=== PATIENT | female | born 1995 | race Two or more races ===

== ENCOUNTER 2017-05-01 08:43 | Emergency (ER) | payer OTHER ==
[2017-05-01 08:54] VITALS: BP 117/82; PULSE 84; TEMP 98.6; BMI 24.3
--- NOTE | 2017-05-01 10:27 | PDOC ---
History of Present Illness - General Stated Complaint: FEVER, NAUSEA Time Seen by Provider: 05/01/17 09:32 History Source: Patient Exam Limitations: No Limitations - History of Present Illness Initial Comments: 05/01/17 10:20 Patient is a 21-year-old female, no significant medical history currently on no medication presents with sore throat, tactile fever, generalized aches since yesterday. Did not take any medication today, is ambulatory, afebrile. Past Medical History: [Denies]. Allergies: No known allergies Medications: None[] Family History: Non-contributory Social History: Denies smoking, alcohol use, or IVDU Review of Systems GENERAL/CONSTITUTIONAL: [Tactile fever No weakness. No weight change.] HEAD, EYES, EARS, NOSE AND THROAT: [No change in vision. No ear pain or discharge. Sore throat. ] CARDIOVASCULAR: [No chest pain or shortness of breath.] RESPIRATORY: [No cough, wheezing, or hemoptysis.] GASTROINTESTINAL: [No nausea, vomiting, diarrhea or constipation. No rectal bleeding.] GENITOURINARY: [No dysuria, frequency, or change in urination.] MUSCULOSKELETAL: [No joint or muscle swelling or pain. No neck or back pain.] SKIN AND BREASTS: [No rash or easy bruising.] NEUROLOGIC: [No headache, vertigo, loss of consciousness, or loss of sensation.] PSYCHIATRIC: [No depression or anxiety.] ENDOCRINE: [No increased thirst. No abnormal weight change.] HEMATOLOGIC/LYMPHATIC: [No anemia, easy bleeding, or history of blood clots.] ALLERGIC/IMMUNOLOGIC: [No hives or skin allergy. No latex allergy.] Physical Exam: GENERAL: [The patient is awake, alert, and fully oriented, in no acute distress. ] HEAD: [Normal with no signs of trauma.] EYES: [Pupils equal, round and reactive to light, extraocular movements intact, sclera anicteric, conjunctiva clear.] ENT: [Ears normal, nares patent, oropharynx clear without exudates. Moist mucous membranes. No uvula deviation] NECK: [Normal range of motion, supple without lymphadenopathy, JVD, or masses.] LUNGS: [Breath sounds equal, clear to auscultation bilaterally. No wheezes, and no crackles.] HEART: [Regular rate and rhythm, normal S1 and S2 without murmur, rub or gallop. ] ABDOMEN: [Soft, nontender, normoactive bowel sounds. No guarding, no rebound. No masses. No bruising or abrasions] RECTAL : [Guaiac negative, normal rectal tone.] MUSCULOSKELETAL: [Normal range of motion, no edema. No clubbing or cyanosis. No cords, erythema, or tenderness. No CVA Tenderness with fist.] NEUROLOGICAL: [Cranial nerves II through XII grossly intact. Normal speech, normal gait.] PSYCH: [Normal mood, normal affect.] SKIN: [Warm, Dry, normal turgor, no rashes or lesions noted.] 05/01/17 10:26 Past History - Past Medical History Allergies/Adverse Reactions: Allergies Allergy/AdvReac Type Severity Reaction Status Date / Time No Known Allergies Allergy Verified 05/01/17 08:54 Home Medications: Ambulatory Orders Ibuprofen [Motrin -] 600 mg PO QID #20 tablet 05/01/17 CVA: No COPD: No - Immunization History TDAP Vaccination: Yes Immunization Up to Date: Yes - Suicide/Smoking/Psychosocial Hx Smoking Status: No Smoking History: Never smoked Have you smoked in the past 12 months: No Number of Cigarettes Smoked Daily: 0 Information on smoking cessation initiated: No Hx Alcohol Use: No Drug/Substance Use Hx: No Substance Use Type: None *Physical Exam - Vital Signs Last Vital Signs Temp Pulse Resp BP Pulse Ox 98.6 F 84 15 117/82 100 05/01/17 08:51 05/01/17 08:51 05/01/17 08:51 05/01/17 08:51 05/01/17 08:51 ED Treatment Course - ADDITIONAL ORDERS Additional order review: 05/01/17 09:52 Group A Strep Rapid Antigen - Preliminary Throat Medical Decision Making - Medical Decision Making 05/01/17 10:27 A/P: Patient here complaining of tactile fever, afebrile upon arrival, sore throat, physical examination is benign rapid strep is negative we'll DC patient home with, cold-like symptoms to follow-up with primary care in 3 days if symptoms persist I discussed the physical exam findings, ancillary test results and final diagnoses with the patient. I answered all of the patient's questions. The patient was satisfied with the care received and felt comfortable with the discharge plan and treatment plan. The patient will call to arrange follow-up and will return to the Emergency Department with any new, persistent or worsening symptoms. *DC/Admit/Observation/Transfer Diagnosis at time of Disposition: Common cold virus - Discharge Dispostion Disposition: HOME Condition at time of disposition: Stable Admit: No - Prescriptions Prescriptions: Ibuprofen [Motrin -] 600 mg PO QID #20 tablet - Referrals Referrals: Simone Meneses MD [Staff Physician] - - Patient Instructions Additional Instructions: Increase fluids to prevent dehydration Motrin for fever greater than 101.0 Please followup with primary care DrLuis Eduardo in 3 days if symptoms persist Return to emergency department any increased cough, fever, inability to drink or other concerns - Post Discharge Activity Forms/Work/School Notes: Back to Work
== END 2017-05-01 10:43 | disposition home or self-care (01) ==
LOC: JERFT 08:43
DX: J00 Acute nasopharyngitis [common cold] (principal)
CPT/HCPCS: 87070; 87430; 99281-25

== ENCOUNTER 2018-04-08 14:27 | Emergency (ER) | payer OTHER ==
[2018-04-08 14:35] VITALS: BP 124/71; PULSE 89; TEMP 98.9; BMI 25.7
--- NOTE | 2018-04-08 15:38 | PDOC ---
History of Present Illness - General Chief Complaint: Headache Stated Complaint: HEADACHE Time Seen by Provider: 04/08/18 15:31 History Source: Patient Exam Limitations: No Limitations - History of Present Illness Initial Comments: 04/08/18 15:50 CHIEF COMPLAINT: Headache HISTORY OF PRESENT ILLNESS: This is an otherwise healthy 22-year-old female presents for evaluation of 2 days of headache. She does not recall exactly when the headache started or what she was doing. She describes the pain as dull and constant. She indicates the left parietal area. She denies any associated blurred vision, changes in speech, focal weakness or numbness, or any other symptoms. She does have some phonophobia, but no photophobia. She reports that she has had similar headaches in the past. Pain has been unrelieved by Motrin or Tylenol. REVIEW OF SYSTEMS: GENERAL/CONSTITUTIONAL: No fever or chills. No weakness. No weight change. HEAD, EYES, EARS, NOSE AND THROAT: No change in vision. No ear pain or discharge. No sore throat. CARDIOVASCULAR: No chest pain or palpitations. RESPIRATORY: No cough, wheezing, or shortness of breath. GASTROINTESTINAL: No nausea, vomiting, diarrhea or constipation. GENITOURINARY: No dysuria, frequency, or change in urination. MUSCULOSKELETAL: No joint or muscle swelling or pain. No neck or back pain. SKIN: No rash or easy bruising. NEUROLOGIC: See HPI. PSYCHIATRIC: No depression or anxiety. ENDOCRINE: No increased thirst. No abnormal weight change. HEMATOLOGIC/LYMPHATIC: No anemia, easy bleeding, or history of blood clots. ALLERGIC/IMMUNOLOGIC: No hives or skin allergy. No latex allergy. PHYSICAL EXAM: GENERAL: The patient is awake, alert, and fully oriented, in no acute distress. HEAD: Normal with no signs of trauma. ENT: Pupils equal, round and reactive to light, extraocular movements intact, sclera anicteric, conjunctiva clear. Neck supple. LUNGS: Clear to auscultation bilaterally. Normal excursion. No respiratory distress or use of accessory muscles. CV: RRR, S1/S2, no MRG. Cap refill < 2 sec. ABDOMEN: Soft, non-distended, non-tender. EXTREMITIES: Normal range of motion, no edema. NEUROLOGICAL: Normal speech, normal gait. CN II-XII grossly intact. PSYCH: Normal mood, normal affect. SKIN: Warm, dry, normal turgor, no rashes or lesions noted. Past History - Past Medical History Allergies/Adverse Reactions: Allergies Allergy/AdvReac Type Severity Reaction Status Date / Time No Known Allergies Allergy Verified 05/01/17 08:54 Home Medications: Ambulatory Orders NK [No Known Home Medication] 04/08/18 CVA: No COPD: No - Immunization History TDAP Vaccination: Yes Immunization Up to Date: Yes - Suicide/Smoking/Psychosocial Hx Smoking Status: No Smoking History: Never smoked Have you smoked in the past 12 months: No Number of Cigarettes Smoked Daily: 0 Information on smoking cessation initiated: No Hx Alcohol Use: No Drug/Substance Use Hx: No Substance Use Type: None *Physical Exam - Vital Signs Last Vital Signs Temp Pulse Resp BP Pulse Ox 98.9 F 89 20 124/71 99 04/08/18 14:32 04/08/18 14:32 04/08/18 14:32 04/08/18 14:32 04/08/18 14:32 Moderate Sedation - Procedure Monitoring Vital Signs: Procedure Monitoring Vital Signs Temperature 98.9 F 04/08/18 14:32 Pulse Rate 89 04/08/18 14:32 Respiratory Rate 20 04/08/18 14:32 Blood Pressure 124/71 04/08/18 14:32 O2 Sat by Pulse Oximetry (%) 99 04/08/18 14:32 Medical Decision Making - Medical Decision Making 04/08/18 15:51 A/P: 22-year-old female with headache. Normal neurologic exam. -Urine -Trial of Toradol 30 mg IM and Reglan 10 mg PO -Reassess 04/08/18 17:11 Patient reevaluated and reports headache resolved. Will discharge with ibuprofen. Follow-up instructions and return precautions reviewed. *DC/Admit/Observation/Transfer Diagnosis at time of Disposition: Headache Qualifiers: Headache type: unspecified Headache chronicity pattern: acute headache Intractability: not intractable Qualified Code(s): R51 - Headache - Discharge Dispostion Disposition: HOME Condition at time of disposition: Improved Decision to Admit order: No - Referrals Referrals: Denny Louis MD [Staff Physician] - 1 week (Neurology - if symptoms continue ) - Patient Instructions Printed Discharge Instructions: DI for Headache Additional Instructions: Take ibuprofen as prescribed for pain. Rest and stay well hydrated. Follow up with neurology (referral and close) if symptoms continue. Return for worsening headache, change in vision, speech, or strength in the arms and legs, or for any other concerning symptoms. - Post Discharge Activity Forms/Work/School Notes: Back to School
[2018-04-08] MEDS ORDERED: KETOROLAC TROMETHAMINE 30 MG/1 ML VIAL IM ONE (15:48)
[2018-04-08] MEDS ORDERED: METOCLOPRAMIDE HCL 10 MG TABLET (FP) PO ONE ×2 (15:48→16:00)
[2018-04-08] MEDS ORDERED: KETOROLAC TROMETHAMINE 30 MG/1 ML VIAL ONE (16:00)
== END 2018-04-08 17:15 | disposition home or self-care (01) ==
LOC: JERFT 14:27
PROC: 3E0233Z Introduction of Anti-inflammatory into Muscle, Percutaneous Approach (ICD-10-PCS; principal; 2018-04-08)
DX: R51 Headache (principal)
CPT/HCPCS: 84703; 99281-25

== ENCOUNTER 2019-01-26 09:14 | Emergency (ER) | payer OTHER ==
[2019-01-26 09:25] VITALS: BP 118/72; PULSE 79; TEMP 97.9; BMI 25.7
--- NOTE | 2019-01-26 09:51 | PDOC ---
History of Present Illness - General Chief Complaint: Injury Stated Complaint: FALL Time Seen by Provider: 01/26/19 09:23 History Source: Patient - History of Present Illness Occurred: reports: this morning Severity: Yes: mild Lower Extremity Pain Location: right: ankle Method of Injury: Yes: twisted Past History - Past Medical History Allergies/Adverse Reactions: Allergies Allergy/AdvReac Type Severity Reaction Status Date / Time No Known Allergies Allergy Verified 01/26/19 09:23 Home Medications: Ambulatory Orders Ibuprofen [Motrin -] 600 mg PO QID PRN #20 tablet 04/08/18 CVA: No COPD: No - Immunization History TDAP Vaccination: Yes Immunization Up to Date: Yes - Psycho Social/Smoking Cessation Hx Smoking Status: No Smoking History: Never smoked Have you smoked in the past 12 months: No Number of Cigarettes Smoked Daily: 0 Information on smoking cessation initiated: No Hx Alcohol Use: No Drug/Substance Use Hx: No Substance Use Type: None Review of Systems - Review of Systems Musculoskeletal: Yes: Joint Pain. No: Joint Swelling *Physical Exam - Vital Signs Last Vital Signs Temp Pulse Resp BP Pulse Ox 97.9 F 79 17 118/72 100 01/26/19 09:20 01/26/19 09:20 01/26/19 09:20 01/26/19 09:20 01/26/19 09:20 - Physical Exam General Appearance: Yes: Appropriately Dressed Extremity: positive: Normal Inspection. negative: Tender, Swelling Integumentary: positive: Dry, Warm Neurologic: positive: Fully Oriented, Alert, Normal Mood/Affect ED Treatment Course - RADIOLOGY Radiology Studies Ordered: Category Date Time Status ANKLE & FOOT-RIGHT* [RAD] Stat Radiology 01/26/19 09:35 Ordered Medical Decision Making - Medical Decision Making 01/26/19 09:55 23-year-old female no significant history here with right ankle pain after twisting it this morning. Able to bear weight see exam Ankle sprain Exam unremarkable XR neg -Dc w/ OTC med prn pain -Ortho f/u as needed Discharge - Discharge Information Problems reviewed: Yes Clinical Impression/Diagnosis: Ankle sprain Qualifiers: Encounter type: initial encounter Involved ligament of ankle: unspecified ligament Laterality: right Qualified Code(s): S93.401A - Sprain of unspecified ligament of right ankle, initial encounter Condition: Good Disposition: HOME - Follow up/Referral Referrals: Severino Jason MD [Staff Physician] - - Patient Discharge Instructions Patient Printed Discharge Instructions: DI for Ankle Sprain Additional Instructions: X-ray did not show any break or fracture. You most likely sustained a mild sprain which can take several days to a week or so to fully heal. Take Motrin or Tylenol for pain as needed If pain persist after 2 weeks, please follow-up with Dr. Jason of orthopedics - Post Discharge Activity Work/Back to School Note: Back to School
== END 2019-01-26 09:50 | disposition home or self-care (01) ==
LOC: JERFT 09:14
DX: S93.401A Sprain of unspecified ligament of right ankle, initial encounter (principal); X58.XXXA Exposure to other specified factors, initial encounter; Y93.89 Activity, other specified; Y92.89 Other specified places as the place of occurrence of the external cause
CPT/HCPCS: 73610-TC-RT-FY; 73630-TC-RT-FY; 99281-25

== ENCOUNTER 2020-12-15 09:11 | Emergency (ER) | payer OTHER ==
[2020-12-15 09:49] VITALS: BP 126/80; PULSE 86; TEMP 97.9; BMI 26.5
[2020-12-15] MEDS ORDERED: IBUPROFEN 600 MG TABLET (FP) PO ONE ×2 (10:01→10:10)
== END 2020-12-15 10:10 | disposition home or self-care (01) ==
LOC: JER 09:11
DX: J02.9 Acute pharyngitis, unspecified (principal)
CPT/HCPCS: 87880; 99283-25; C9803; U0003; U0005

== ENCOUNTER 2022-11-06 15:20 | Emergency (ER) | payer OTHER ==
[2022-11-06 15:48] VITALS: RESP 18; BMI 27.4
[2022-11-06 17:14] LABS: HCG,QUALITATIVE URINE Negative
[2022-11-06 17:22] LABS: EPI CELLS 35 /uL (0-25.1); HYALINE CASTS 0 /uL (0-3.1); URINE APPEARANCE CLEAR; URINE BACTERIA 181 /uL (0-1359); URINE BILIRUBIN NEGATIVE (NEGATIVE); URINE COLOR YELLOW; URINE GLUCOSE (UA) NEGATIVE (NEGATIVE); URINE KETONE TRACE (NEGATIVE); URINE LEUK ESTERASE NEGATIVE (NEGATIVE); URINE NITRITE NEGATIVE (NEGATIVE); URINE PROTEIN 1+ (NEGATIVE); URINE RBC 227 /uL (0-23.9); URINE WBC 20 /uL (0-25.8)
[2022-11-06 17:58] VITALS: TEMP 98.2
[2022-11-06 17:59] VITALS: BP 118/83; PULSE 85
== END 2022-11-06 18:15 | disposition home or self-care (01) ==
LOC: JER 15:20
DX: R42 Dizziness and giddiness (principal); N93.9 Abnormal uterine and vaginal bleeding, unspecified
CPT/HCPCS: 81003; 84703; 87086; 93005; 93010; 99284-25